=== PATIENT | male | born 1955 | race Caucasian/White ===

== ENCOUNTER 2018-05-30 04:44 | Emergency (ER) | payer OTHER ==
--- NOTE | 2018-05-30 04:57 | PDOC ---
History of Present Illness - General Stated Complaint: ABD PAIN Time Seen by Provider: 05/30/18 04:57 - History of Present Illness Initial Comments: 62 year old male with no PMH presenting with abdominal fullness and pain after eating multiple whopper sandwiches over the past few days because his stopped cooking at home. Patient states that he feels that the burgers are "ruining his stomach". He denies any nausea, vomiting, diarrhea, fevers, chills , chest pain, or other symptoms. Of note, he does not take any OTC medications at home because his does not believe in western medicine. 05/30/18 06:49 Past History - Past Medical History Allergies/Adverse Reactions: Allergies Allergy/AdvReac Type Severity Reaction Status Date / Time No Known Allergies Allergy Verified 05/30/18 05:00 Home Medications: Ambulatory Orders Polyethylene Glycol 3350 [Miralax (For Daily Use) -] 17 gm PO ONCE #1 bottle Review of Systems - Review of Systems Constitutional: No: Chills, Diaphoresis, Fever Respiratory: No: Cough, Orthopnea, Shortness of Breath Cardiac (ROS): No: Chest Pain, Edema, Irregular Heart Rate ABD/GI: Yes: Constipated. No: Diarrhea, Nausea, Vomiting : No: Burning, Dysuria Musculoskeletal: No: Muscle Pain, Muscle Weakness Integumentary: No: Erythema, Lesions Neurological: No: Headache, Numbness, Paresthesia Psychiatric: No: Anxiety, Depression Hematologic/Lymphatic: No: Anemia, Easy Bleeding *Physical Exam - Physical Exam General Appearance: Yes: Nourished, Appropriately Dressed HEENT: positive: EOMI, KATIUSKA, Normal ENT Inspection, Normal Voice Neck: positive: Trachea midline, Normal Thyroid, Supple. negative: Tender, Rigid Respiratory/Chest: positive: Lungs Clear, Normal Breath Sounds. negative: Chest Tender, Respiratory Distress, Accessory Muscle Use Cardiovascular: positive: Regular Rhythm, Regular Rate Gastrointestinal/Abdominal: positive: Normal Bowel Sounds, Flat, Soft. negative : Tender Lymphatic: negative: Adenopathy, Tenderness Musculoskeletal: positive: Normal Inspection Extremity: positive: Normal Inspection, Normal Range of Motion. negative: Tender Integumentary: positive: Normal Color, Dry, Warm Neurologic: positive: Fully Oriented, Alert, Normal Mood/Affect, Normal Response , Motor Strength /5 ED Treatment Course - LABORATORY CBC & Chemistry Diagram: 05/30/18 05:37 05/30/18 05:37 *DC/Admit/Observation/Transfer - Prescriptions Prescriptions: Polyethylene Glycol 3350 [Miralax (For Daily Use) -] 17 gm PO ONCE #1 bottle - Referrals Referrals: Aaron Camarena MD [Primary Care Provider] - - Patient Instructions - Post Discharge Activity
--- NOTE | 2018-05-30 05:03 | PDOC ---
Attending Attestation - Resident Resident Name: Luis Armando Lima - ED Attending Attestation I have performed the following: I have examined & evaluated the patient, The case was reviewed & discussed with the resident, I agree w/resident's findings & plan - HPI HPI: 05/31/18 20:42 Pt comes with abd pain. He has been eating fast food and large amounts of cheese and he states that he is feeling unwell. - Physicial Exam PE: 05/31/18 20:43 Agree with resident exam. - Medical Decision Making 05/31/18 20:43 Labs pending and pt will be signed out to the day time ER team for further evaluation and follow up..
[2018-05-30 05:06] VITALS: TEMP 98.6; BMI 25.4
[2018-05-30] MEDS ORDERED: FAMOTIDINE 20 MG/50 ML IVPB 20 MG/50 ML MG IVPB ONE ×2 (05:19→05:25)
[2018-05-30] MEDS ORDERED: MAG HYDROX/AL HYDROX/SIMETH 30 ML UNIT-DOSE CUP PO ONE (05:19)
[2018-05-30] MEDS ORDERED: MAG HYDROX/AL HYDROX/SIMETH 30 ML UNIT-DOSE CUP ONE (05:25)
[2018-05-30 06:31] LABS: BASO % 0.3 % (0-2.0); EOS % 2.1 % (0-4.5); HEMATOCRIT 38.1 % (35.4-49); HEMOGLOBIN 12.9 GM/dL (11.7-16.9); LYMPH % 18.1 % (8-40); MCH 29.1 pg (25.7-33.7); MCHC 33.8 g/dl (32.0-35.9); MEAN CELL VOLUME 86.3 fl (80-96); MEAN PLT VOLUME 7.6 fl (7.5-11.1); MONO % 8.7 % (3.8-10.2); NEUT % 70.8 % (42.8-82.8); PLATELET COUNT 240 K/MM3 (134-434); RBC 4.42 M/mm3 (4.00-5.60); RDW 13.8 % (11.9-15.9); WHITE BLOOD COUNT 7.8 K/mm3 (4.0-10.0)
[2018-05-30] MEDS ORDERED: SIMETHICONE 40 MG/0.6 ML BOTTLE PO STA (06:31)
[2018-05-30] MEDS ORDERED: SIMETHICONE 80 MG TAB.CHEW (FP) PO ONE (06:45)
[2018-05-30 07:03] LABS: ALBUMIN 3.9 g/dl (3.4-5.0); ALK PHOS 114 U/L (45-117); AMYLASE 68 U/L (25-115); ANION GAP 6 MMOL/L (8-16); BILIRUBIN,TOTAL 0.4 mg/dL (0.2-1); BLOOD UREA NITROGEN 17 mg/dL (7-18); CALCIUM 8.9 mg/dL (8.5-10.1); CHLORIDE 105 mmol/L (98-107); CO2 29 mmol/L (21-32); CREATININE 0.8 mg/dL (0.55-1.3); GLUCOSE,RANDOM 96 mg/dL (74-106); LIPASE 526 U/L (73-393); POTASSIUM 3.9 mmol/L (3.5-5.1); SGOT/AST 16 U/L (15-37); SGPT/ALT 26 U/L (13-61); SODIUM 140 mmol/L (136-145); TOT PROT 7.2 g/dl (6.4-8.2)
--- NOTE | 2018-05-30 07:12 | PDOC ---
*Physical Exam - Vital Signs Last Vital Signs Temp Pulse Resp BP Pulse Ox 98.6 F 76 20 145/97 98 05/30/18 05:00 05/30/18 05:00 05/30/18 05:00 05/30/18 05:00 05/30/18 05:00 ED Treatment Course - LABORATORY CBC & Chemistry Diagram: 05/30/18 05:37 05/30/18 05:37 - ADDITIONAL ORDERS Additional order review: Laboratory Results 05/30/18 05:37 Sodium 140 Potassium 3.9 Chloride 105 Carbon Dioxide 29 Anion Gap 6 L BUN 17 Creatinine 0.8 Creat Clearance w eGFR > 60 Random Glucose 96 Calcium 8.9 Total Bilirubin 0.4 AST 16 ALT 26 Alkaline Phosphatase 114 Total Protein 7.2 Albumin 3.9 Total Amylase 68 Lipase 526 H 05/30/18 05:37 RBC 4.42 MCV 86.3 MCHC 33.8 RDW 13.8 MPV 7.6 Neutrophils % 70.8 Lymphocytes % 18.1 Monocytes % 8.7 Eosinophils % 2.1 Basophils % 0.3 - Medications Given in the ED: ED Medications Discontinued Medications Generic Name Dose Route Start Last Admin Trade Name Freq PRN Reason Stop Dose Admin Al Hydroxide/Mg Hydroxide 30 ml 05/30/18 05:19 05/30/18 05:25 Mylanta Oral Suspension - PO 05/30/18 05:20 30 ml ONCE ONE Administration Famotidine/Sodium Chloride 20 mg in 50 mls @ 100 mls/hr 05/30/18 05:19 05:25 Pepcid 20 Mg Premixed Ivpb - IVPB 05/30/18 05:48 100 mls/hr ONCE ONE Administration Simethicone 80 mg 05/30/18 06:45 05/30/18 06:41 Mylicon - PO 05/30/18 06:46 80 mg ONCE ONE Administration Medical Decision Making - Medical Decision Making 05/30/18 07:12 Pt signed out to me by Dr. Lima. 62 year old male with no PMH presented to ED for generalized abdominal pain and fullness after eating whopper burgers for the last 5 days. Initial Vital Signs Temp Pulse Resp BP Pulse Ox 98.6 F 76 20 145/97 98 05/30/18 05:00 05/30/18 05:00 05/30/18 05:00 05/30/18 05:00 05/30/18 05:00 Afebrile. No tachycardia. No tachypnea. Mild hypertension. No hypoxia on room air. CBC WBC 7.8 K/mm3 (4.0-10.0) 05/30/18 05:37 RBC 4.42 M/mm3 (4.00-5.60) 05/30/18 05:37 Hgb 12.9 GM/dL (11.7-16.9) 05/30/18 05:37 Hct 38.1 % (35.4-49) 05/30/18 05:37 MCV 86.3 fl (80-96) 05/30/18 05:37 MCH 29.1 pg (25.7-33.7) 05/30/18 05:37 MCHC 33.8 g/dl (32.0-35.9) 05/30/18 05:37 RDW 13.8 % (11.9-15.9) 05/30/18 05:37 Plt Count 240 K/MM3 (134-434) 05/30/18 05:37 MPV 7.6 fl (7.5-11.1) 05/30/18 05:37 Absolute Neuts (auto) 5.5 K/mm3 (1.5-8.0) 05/30/18 05:37 Neutrophils % 70.8 % (42.8-82.8) 05/30/18 05:37 Lymphocytes % 18.1 % (8-40) 05/30/18 05:37 Monocytes % 8.7 % (3.8-10.2) 05/30/18 05:37 Eosinophils % 2.1 % (0-4.5) 05/30/18 05:37 Basophils % 0.3 % (0-2.0) 05/30/18 05:37 Nucleated RBC % 0 % (0-0) 05/30/18 05:37 No leukocytosis. No anemia. CMP Sodium 140 mmol/L (136-145) 05/30/18 05:37 Potassium 3.9 mmol/L (3.5-5.1) 05/30/18 05:37 Chloride 105 mmol/L (98-107) 05/30/18 05:37 Carbon Dioxide 29 mmol/L (21-32) 05/30/18 05:37 Anion Gap 6 MMOL/L (8-16) L 05/30/18 05:37 BUN 17 mg/dL (7-18) 05/30/18 05:37 Creatinine 0.8 mg/dL (0.55-1.3) 05/30/18 05:37 Creat Clearance w eGFR > 60 (>60) 05/30/18 05:37 Random Glucose 96 mg/dL (74-106) 05/30/18 05:37 Calcium 8.9 mg/dL (8.5-10.1) 05/30/18 05:37 Total Bilirubin 0.4 mg/dL (0.2-1) 05/30/18 05:37 AST 16 U/L (15-37) 05/30/18 05:37 ALT 26 U/L (13-61) 05/30/18 05:37 Alkaline Phosphatase 114 U/L (45-117) 05/30/18 05:37 Total Protein 7.2 g/dl (6.4-8.2) 05/30/18 05:37 Albumin 3.9 g/dl (3.4-5.0) 05/30/18 05:37 Total Amylase 68 U/L (25-115) 05/30/18 05:37 Lipase 526 U/L (73-393) H 05/30/18 05:37 No electrolyte abnormalities. No JAYCE. No transaminitis. Mildly elevated lipase level. - Not 3X upper limit of normal - Pt informed and given copy of results - Pt informed to follow up with PCP Pt reassessed, reported improvement of pain. Pt reported a few days ago he ate an entire block of cheese. Abdominal examination: soft, flat, nontender to palpation. mcburneys point nontender. rovsings negative. no rebound. Abdominal XR shows constipation. - Pending official report. 05/31/18 19:43 Follow up: Official Abdomen XR report: retained stool and some generalized abdominal distension with scattered air fluid levels. this could represent a developing partial small bowel obstruction with air seen in the small bowel and some air and stool in the colon. free air is not visualized. no organomegaly. *DC/Admit/Observation/Transfer Diagnosis at time of Disposition: Abdominal pain, Constipation - Discharge Dispostion Disposition: HOME Condition at time of disposition: Stable Decision to Admit order: No - Prescriptions Prescriptions: Polyethylene Glycol 3350 [Miralax (For Daily Use) -] 17 gm PO ONCE #1 bottle - Referrals Referrals: Aaron Camarena MD [Primary Care Provider] - - Patient Instructions Additional Instructions: Your lab work showed an elevated lipase level, take the copy of the lab results to your primary care doctor. Follow up with your primary care doctor in 2-3 days. Your X-ray showed constipation. Take Maalox for your constipation, take as advised on label. Return to the Emergency Department for increasing pain, blood in stool, fever, localization of pain to the right lower part of your abdomen, vomiting, chest pain, shortness of breath or any other new, worsening or concerning symptoms. - Post Discharge Activity Forms/Work/School Notes: Back to Work
[2018-05-30 07:59] VITALS: BP 115/64; PULSE 73
--- NOTE | 2018-05-30 22:00 | EKG ---
Test Reason : Blood Pressure : / mmHG Vent. Rate : 080 BPM Atrial Rate : 080 BPM P-R Int : 166 ms QRS Dur : 102 ms QT Int : 376 ms P-R-T Axes : 053 026 018 degrees QTc Int : 433 ms NORMAL SINUS RHYTHM INCOMPLETE RIGHT BUNDLE BRANCH BLOCK BORDERLINE ECG NO PREVIOUS ECGS AVAILABLE Confirmed by DUDLEY CHONG MD ([id number]) on 05/30/2018 10:00:03 PM Referred By: Confirmed By:DUDLEY CHONG MD
== END 2018-05-30 07:59 | disposition home or self-care (01) ==
LOC: JER 04:44
PROC: 3E033GC Introduction of Other Therapeutic Substance into Peripheral Vein, Percutaneous Approach (ICD-10-PCS; principal; 2018-05-30)
DX: K59.00 Constipation, unspecified (principal); R74.8 Abnormal levels of other serum enzymes
CPT/HCPCS: 36415; 74019-TC-FY; 80053; 82150; 83690; 85025; 93005; 93010; 96365; 99283-25